=== PATIENT | female | born 1980 | race American Indian/Alaskan Native ===

== ENCOUNTER 2017-03-25 14:10 | Inpatient (IN) | payer OTHER ==
[2017-03-25 14:59] LABS: Basophils % (Auto) 1.2 % (0.0-1.8); Eosinophils % (Auto) 0.4 % (0.0-4.3); Hematocrit 40.7 % (30.3-42.9); Hemoglobin 13.1 gm/dl (10.1-14.3); Mean Corpuscular HGB Conc 32 % (30-34); Mean Corpuscular Hemoglobin 26 pg (28-32); Mean Corpuscular Volume 82 fl (79-97); Platelet Count 215 K/mm3 (140-440); Red Blood Count 4.98 M/mm3 (3.65-5.03); Red Cell Distribution Width 14.4 % (13.2-15.2); White Blood Count 4.3 K/mm3 (4.5-11.0)
[2017-03-25 15:27] LABS: Anion Gap 19 mmol/L; BUN/Creatinine Ratio 45; Blood Urea Nitrogen 18 mg/dL (7-17); Calcium 9.5 mg/dL (8.4-10.2); Carbon Dioxide 24 mmol/L (22-30); Chloride 93.2 mmol/L (98-107); Potassium 4.6 mmol/L (3.6-5.0); Sodium 132 mmol/L (137-145)
[2017-03-25 15:30] LABS: Glucose 509 mg/dL (65-100)
[2017-03-25 15:35] LABS: Mucus,Urine FEW /HPF
[2017-03-25] MEDS ORDERED: NACL 0.9% 1000 ML 1,000 ML IV ONE ×2 (15:39→16:03)
[2017-03-25 15:40] LABS: Bilirubin,Urine NEG (Negative); Blood,Urine MOD (Negative); Ketones,Urine NEG (Negative); Leukocyte Esterase,Urine TR (Negative); Nitrite,Urine NEG (Negative); Protein,Urine <15 mg/dL mg/dL (Negative); Urobilinogen,Urine < 2.0 mg/dL (<2.0)
--- NOTE | 2017-03-25 16:25 | XRay Report ---
Chest 2 views: History: Shortness of breath. Findings: Normal cardiomediastinal silhouette. Trachea is midline. No consolidation, pneumothorax or pleural effusion. Impression: No acute cardiopulmonary findings.
--- NOTE | 2017-03-25 17:26 | Ultrasound Report ---
FINAL REPORT PROCEDURE: US THRYROID SCAN TECHNIQUE: Focused real-time sonography in multiple planes of the below described organs, glands and soft tissues of the neck was performed with image documentation. CPT 34555 HISTORY: large thyroid COMPARISON: No prior studies are available for comparison. FINDINGS: Right lobe of the thyroid gland measures 6.5 x 3.0 x 3.3 cm. Left lobe measures 7.0 x 3.2 x 3.0 cm. Thyroid gland is diffusely heterogeneous without evidence of a dominant nodule being identified. Thyroid gland is likely hyperemic which could be seen with thyroiditis. IMPRESSION: Enlarged heterogeneous thyroid gland is seen, without evidence of a dominant nodule.
[2017-03-25] MEDS ORDERED: INDERAL IV ONE (17:36)
--- NOTE | 2017-03-25 17:53 | Emergency Department Report ---
ED Palpitations HPI - General Chief Complaint: Hyperglycemia Stated Complaint: DIZZINESS/NECK SWELLING Time Seen by Provider: 03/25/17 16:38 Source: patient Mode of arrival: Ambulatory Limitations: No Limitations - History of Present Illness Initial Comments: 36 year old female the past medical history of [id number]-[id number] diabetes and hypertension presents to the hospital with complaints of sudden onset of palpitations, lightheadedness, shortness of breath. Patient also states she had blurred vision and difficulty focusing. Patient was extremely short of breath with exertion and had difficulty ambulating. She denies actual chest pain, nausea, vomiting, or diaphoresis. Patient has a noticeable swelling to the anterior of her neck which she states has been progressively worsening. She admits to intermittent compliance with her diabetes medication because she is trying to stretch out the doses. No complaints of cough, fever, recent travel, calf tenderness, control pill use, history of PE/DVT. - Related Data Home Medications Medication Instructions Recorded Confirmed Last Taken Insulin Aspart [Novolog] 5 unit SQ BID 03/25/17 03/25/17 Unknown metFORMIN [Glucophage] 1,000 mg PO BID 03/25/17 03/25/17 Unknown Allergies Allergy/AdvReac Type Severity Reaction Status Date / Time No Known Allergies Allergy Verified 03/25/17 14:21 ED Review of Systems ROS: Stated complaint: DIZZINESS/NECK SWELLING Other details as noted in HPI Comment: All other systems reviewed and negative Other: Constitutional: No fevers chills Eyes: as per hpi ENT: No ear pain or throat pain Neck: as per hpi Respiratory: Denies cough wheezing Cardiovascular: Denies chest pain GI: Denies abdominal pain, nausea, vomiting, diarrhea : Denies dysuria Musculoskeletal: Denies back pain Skin: Denies rash, lesions, erythema Neurologic: Denies headache, numbness, weakness Psychiatric: Denies suicidal ideation, hallucinations ED Past Medical Hx - Past Medical History Hx Hypertension: Yes Hx Diabetes: Yes - Surgical History Additional Surgical History: - Social History Smoking Status: Never Smoker Substance Use Type: None - Medications Home Medications: Home Medications Medication Instructions Recorded Confirmed Last Taken Type Insulin Aspart [Novolog] 5 unit SQ BID 03/25/17 03/25/17 Unknown History metFORMIN [Glucophage] 1,000 mg PO BID 03/25/17 03/25/17 Unknown History ED Physical Exam - General Limitations: No Limitations - Other Other exam information: General: No limitations, patient is alert in no acute distress Head exam: Atraumatic, normocephalic Eyes exam: Normal appearance, pupils equal reactive to light, extraocular movements intact ENT: Moist mucous membrane, normal oropharynx Neck exam: Normal inspection, full range of motion, positive enlarged thyroid gland without palpable nodules or tenderness. Respiratory exam: Clear to auscultation bilateral, no wheezes, rales, crackles Cardiovascular: Tachycardic regular rhythm Abdomen: Soft, nondistended, and nontender, with normal bowel sounds, no rebound, or guarding Extremity: Full range of motion normal inspection no deformity, no calf tenderness or edema Back: Normal Inspection, full range of motion, no tenderness Neurologic: Alert, oriented x3, cranial nerves intact, no motor or sensory deficit Psychiatric: normal affect, normal mood Skin: Warm, dry, intact ED Course Vital Signs 03/25/17 03/25/17 03/25/17 14:21 15:06 15:30 Temperature 98.1 F Pulse Rate 134 H 119 H Respiratory 20 19 Rate Blood Pressure 142/93 132/80 128/81 O2 Sat by Pulse 98 Oximetry 03/25/17 03/25/17 03/25/17 15:47 16:00 16:41 Temperature Pulse Rate 100 H Respiratory 20 16 Rate Blood Pressure 136/79 141/83 O2 Sat by Pulse 99 100 Oximetry 03/25/17 03/25/17 17:00 17:30 Temperature Pulse Rate 97 H 103 H Respiratory 19 19 Rate Blood Pressure 153/81 162/85 O2 Sat by Pulse 100 100 Oximetry - Reevaluation(s) Reevaluation #1: 03/25/17 17:52 Initially patient she regular insulin and 2 L of normal saline ordered for hyperglycemia. Lab work reveals the patient has hyperthyroidism. Propanolol 1 mg and methimazole 40 mg ordered ED Medical Decision Making - Lab Data Result diagrams: 03/25/17 14:37 03/25/17 14:37 Lab Results 03/25/17 03/25/17 03/25/17 Range/Units 14:26 14:37 14:37 WBC 4.3 L (4.5-11.0) K/mm3 RBC 4.98 (3.65-5.03) M/mm3 Hgb 13.1 (10.1-14.3) gm/dl Hct 40.7 (30.3-42.9) % MCV 82 (79-97) fl MCH 26 L (28-32) pg MCHC 32 (30-34) % RDW 14.4 (13.2-15.2) % Plt Count 215 (140-440) K/mm3 Lymph % (Auto) 36.5 H (13.4-35.0) % [place] % (Auto) 11.2 H (0.0-7.3) % Eos % (Auto) 0.4 (0.0-4.3) % Baso % (Auto) 1.2 (0.0-1.8) % Lymph # 1.6 (1.2-5.4) K/mm3 [place] # 0.5 (0.0-0.8) K/mm3 Eos # 0.0 (0.0-0.4) K/mm3 Baso # 0.1 (0.0-0.1) K/mm3 Seg Neutrophils % 50.7 (40.0-70.0) % Seg Neutrophils # 2.2 (1.8-7.7) K/mm3 D-Dimer (0-234) ng/mlDDU VBG pH (7.320-7.420) Sodium 132 L (137-145) mmol/L Potassium 4.6 (3.6-5.0) mmol/L Chloride 93.2 L (98-107) mmol/L Carbon Dioxide 24 (22-30) mmol/L Anion Gap 19 mmol/L BUN 18 H (7-17) mg/dL Creatinine 0.4 L (0.7-1.2) mg/dL Estimated GFR > 60 ml/min BUN/Creatinine Ratio 45 % Glucose 509 H* (65-100) mg/dL POC Glucose 474 H (70-105) Lactic Acid (0.7-2.0) mmol/L Calcium 9.5 (8.4-10.2) mg/dL TSH (0.270-4.200) mlU/mL Free T4 (0.76-1.46) ng/dL HCG, Qual (Negative) Urine Color (Yellow) Urine Turbidity (Clear) Urine pH (5.0-7.0) Ur Specific [place] (1.003-1.030) Urine Protein (Negative) mg/dL Urine Glucose (UA) (Negative) mg/dL Urine Ketones (Negative) mg/dL Urine Blood (Negative) Urine Nitrite (Negative) Ur Reducing Substances Urine Bilirubin (Negative) Urine Ictotest Urine Urobilinogen (<2.0) mg/dL Ur Leukocyte Esterase (Negative) Urine WBC (Auto) (0.0-6.0) /HPF Urine RBC (Auto) (0.0-6.0) /HPF U Epithel Cells (Auto) (0-13.0) /HPF Urine Mucus /HPF 03/25/17 03/25/17 03/25/17 Range/Units 14:37 14:37 14:47 WBC (4.5-11.0) K/mm3 RBC (3.65-5.03) M/mm3 Hgb (10.1-14.3) gm/dl Hct (30.3-42.9) % MCV (79-97) fl MCH (28-32) pg MCHC (30-34) % RDW (13.2-15.2) % Plt Count (140-440) K/mm3 Lymph % (Auto) (13.4-35.0) % [place] % (Auto) (0.0-7.3) % Eos % (Auto) (0.0-4.3) % Baso % (Auto) (0.0-1.8) % Lymph # (1.2-5.4) K/mm3 [place] # (0.0-0.8) K/mm3 Eos # (0.0-0.4) K/mm3 Baso # (0.0-0.1) K/mm3 Seg Neutrophils % (40.0-70.0) % Seg Neutrophils # (1.8-7.7) K/mm3 D-Dimer (0-234) ng/mlDDU VBG pH 7.320 (7.320-7.420) Sodium (137-145) mmol/L Potassium (3.6-5.0) mmol/L Chloride (98-107) mmol/L Carbon Dioxide (22-30) mmol/L Anion Gap mmol/L BUN (7-17) mg/dL Creatinine (0.7-1.2) mg/dL Estimated GFR ml/min BUN/Creatinine Ratio % Glucose (65-100) mg/dL POC Glucose (70-105) Lactic Acid (0.7-2.0) mmol/L Calcium (8.4-10.2) mg/dL TSH (0.270-4.200) mlU/mL Free T4 (0.76-1.46) ng/dL HCG, Qual Negative (Negative) Urine Color Yellow (Yellow) Urine Turbidity Clear (Clear) Urine pH 5.0 (5.0-7.0) Ur Specific [place] 1.022 (1.003-1.030) Urine Protein <15 mg/dl (Negative) mg/dL Urine Glucose (UA) >=500 (Negative) mg/dL Urine Ketones Neg (Negative) mg/dL Urine Blood Mod (Negative) Urine Nitrite Neg (Negative) Ur Reducing Substances Not Reportable Urine Bilirubin Neg (Negative) Urine Ictotest Not Reportable Urine Urobilinogen < 2.0 (<2.0) mg/dL Ur Leukocyte Esterase Tr (Negative) Urine WBC (Auto) 2.0 (0.0-6.0) /HPF Urine RBC (Auto) 5.0 (0.0-6.0) /HPF U Epithel Cells (Auto) < 1.0 (0-13.0) /HPF Urine Mucus Few /HPF 03/25/17 03/25/17 03/25/17 Range/Units 15:04 15:25 Unknown WBC (4.5-11.0) K/mm3 RBC (3.65-5.03) M/mm3 Hgb (10.1-14.3) gm/dl Hct (30.3-42.9) % MCV (79-97) fl MCH (28-32) pg MCHC (30-34) % RDW (13.2-15.2) % Plt Count (140-440) K/mm3 Lymph % (Auto) (13.4-35.0) % [place] % (Auto) (0.0-7.3) % Eos % (Auto) (0.0-4.3) % Baso % (Auto) (0.0-1.8) % Lymph # (1.2-5.4) K/mm3 [place] # (0.0-0.8) K/mm3 Eos # (0.0-0.4) K/mm3 Baso # (0.0-0.1) K/mm3 Seg Neutrophils % (40.0-70.0) % Seg Neutrophils # (1.8-7.7) K/mm3 D-Dimer < 135.00 (0-234) ng/mlDDU VBG pH (7.320-7.420) Sodium (137-145) mmol/L Potassium (3.6-5.0) mmol/L Chloride (98-107) mmol/L Carbon Dioxide (22-30) mmol/L Anion Gap mmol/L BUN (7-17) mg/dL Creatinine (0.7-1.2) mg/dL Estimated GFR ml/min BUN/Creatinine Ratio % Glucose (65-100) mg/dL POC Glucose (70-105) Lactic Acid 3.10 H* (0.7-2.0) mmol/L Calcium (8.4-10.2) mg/dL TSH < 0.005 L (0.270-4.200) mlU/mL Free T4 > 7.77 H (0.76-1.46) ng/dL HCG, Qual (Negative) Urine Color (Yellow) Urine Turbidity (Clear) Urine pH (5.0-7.0) Ur Specific [place] (1.003-1.030) Urine Protein (Negative) mg/dL Urine Glucose (UA) (Negative) mg/dL Urine Ketones (Negative) mg/dL Urine Blood (Negative) Urine Nitrite (Negative) Ur Reducing Substances Urine Bilirubin (Negative) Urine Ictotest Urine Urobilinogen (<2.0) mg/dL Ur Leukocyte Esterase (Negative) Urine WBC (Auto) (0.0-6.0) /HPF Urine RBC (Auto) (0.0-6.0) /HPF U Epithel Cells (Auto) (0-13.0) /HPF Urine Mucus /HPF - EKG Data -: EKG Interpreted by [place] EKG shows normal: sinus rhythm, axis (qrs 59), QRS complexes (76), ST-T waves ( no stemi/ t inv) Rate: tachycardia (104) - EKG Data When compared to previous EKG there are: previous EKG unavailable - Radiology Data Radiology results: report reviewed (chest x-ray: No acute findings) Thyroid ultrasound: enlarged heterogeneous thyroid gland without evidence of dominant nodule - Medical Decision Making Patient tachycardia and symptoms likely secondary to hyperthyroidism. No signs of DKA. No signs of sepsis. Patient will cry admission to the hospital for further stabilization and treatment - Differential Diagnosis DKA, hyperglycemia, dehydration, hypothyroidism, PE Critical Care Time: No Critical care attestation.: If time is entered above; I have spent that time in minutes in the direct care of this critically ill patient, excluding procedure time. ED Disposition Clinical Impression: Palpitations, Hyperthyroidism, Uncontrolled diabetes mellitus, Hyperglycemia Disposition: OP ADMIT IP TO THIS HOSP Is pt being admited?: Yes Condition: Stable Time of Disposition: 17:55 (DR Weathers/hosp)
--- NOTE | 2017-03-25 18:46 | History and Physical Report ---
History of Present Illness Chief complaint: I feel dizzy and my neck is swollen History of present illness: 36 YO Female with DM, HTN, Severe Malnutrition presents to ED for evaluation. Pt states that she has been experiencing lightheadedness, shortness of breath, and difficulty focusing for the past several months, as well as swelling in her neck with worsening symptoms over the past week. Pt acknowledges sudden onset of palpitations, and shortness of breath today. Pt acknowledges difficulty ambulating as well as 30 lbs weight loss over the past 3 months. Pt denies fever, chills, chest pain, nausea, vomiting, or diaphoresis,, productive cough, fever, recent travel, calf tenderness, prolonged travel/immobility, indivudual/family history of DVT/PE. Pt seen and evaluated in ED and found to have Thyrotoxic Crisis. Pt admitted to ICU and initiated on therapy with beta edgar, and methimazole. Past History Past Medical History: diabetes, hypertension Social history: single. denies: smoking, alcohol abuse, prescription drug abuse Family history: no significant family history, other (reviewed) Medications and Allergies Allergies Allergy/AdvReac Type Severity Reaction Status Date / Time No Known Allergies Allergy Verified 03/25/17 14:21 Home Medications Medication Instructions Recorded Confirmed Last Taken Type Insulin Aspart [Novolog] 5 unit SQ BID 03/25/17 03/25/17 Unknown History metFORMIN [Glucophage] 1,000 mg PO BID 03/25/17 03/25/17 Unknown History Active Meds: Active Medications Methimazole (Tapazole) 40 mg PO ONCE.ED ONE Stop: 03/26/17 17:38 Review of Systems Constitutional: weight loss, sweats, fatigue, weakness Ears, nose, mouth and throat: no ear pain, no ear discharge, no tinnitis, no decreased hearing, no nose pain, no nasal congestion Breasts: no change in shape, no mass Cardiovascular: palpitations, no orthopnea Respiratory: no cough, no cough with sputum, no excessive sputum, no hemoptysis Gastrointestinal: no abdominal pain, no nausea, no vomiting, no diarrhea Genitourinary Female: no pelvic pain, no flank pain, no menorrhagia, no dysuria Rectal: no pain, no incontinence, no bleeding Integumentary: no rash, no pruritis, no redness, no sores Neurological: no transient paralysis, no paralysis, no weakness, no parathesias , no numbness Psychiatric: no anxiety, no memory loss, no change in sleep habits, no sleep disturbances, no insomnia Endocrine: heat intolerance, flushing, weight change, no cold intolerance, no excessive thirst Hematologic/Lymphatic: no easy bruising, no easy bleeding Allergic/Immunologic: no urticaria, no allergic rhinitis, no wheezing Exam - Constitutional Vitals: Temp Pulse Resp BP Pulse Ox 98.1 F 103 H 19 162/85 100 03/25/17 14:21 03/25/17 17:30 03/25/17 17:30 03/25/17 17:30 03/25/17 17:30 General appearance: Present: severe distress, cachectic - EENT Eyes: Present: PERRL ENT: hearing intact, clear oral mucosa, other (neck mass) - Neck Neck: Present: supple, enlarged thyroid - Respiratory Respiratory effort: normal Respiratory: bilateral: CTA - Cardiovascular Heart Sounds: Present: S1 & S2. Absent: rub, click - Extremities Extremities: pulses symmetrical, No edema Peripheral Pulses: within normal limits - Abdominal General gastrointestinal: Present: soft, non-tender, non-distended, normal bowel sounds Female genitourinary: Present: normal - Integumentary Integumentary: Present: clear, dry, clammy, decreased turgor - Musculoskeletal Musculoskeletal: generalized weakness - Psychiatric Psychiatric: appropriate mood/affect, intact judgment & insight - Neurologic Neurologic: CNII-XII intact, moves all extremities Results - Labs CBC & Chem 7: 03/25/17 14:37 03/25/17 14:37 Labs: Abnormal lab results 03/25/17 03/25/17 03/25/17 Range/Units 14:26 14:37 14:37 WBC 4.3 L (4.5-11.0) K/mm3 MCH 26 L (28-32) pg Lymph % (Auto) 36.5 H (13.4-35.0) % [place] % (Auto) 11.2 H (0.0-7.3) % Sodium 132 L (137-145) mmol/L Chloride 93.2 L (98-107) mmol/L BUN 18 H (7-17) mg/dL Creatinine 0.4 L (0.7-1.2) mg/dL Glucose 509 H* (65-100) mg/dL POC Glucose 474 H (70-105) Lactic Acid (0.7-2.0) mmol/L TSH (0.270-4.200) mlU/mL Free T4 (0.76-1.46) ng/dL 03/25/17 03/25/17 Range/Units 15:04 Unknown WBC (4.5-11.0) K/mm3 MCH (28-32) pg Lymph % (Auto) (13.4-35.0) % [place] % (Auto) (0.0-7.3) % Sodium (137-145) mmol/L Chloride (98-107) mmol/L BUN (7-17) mg/dL Creatinine (0.7-1.2) mg/dL Glucose (65-100) mg/dL POC Glucose (70-105) Lactic Acid 3.10 H* (0.7-2.0) mmol/L TSH < 0.005 L (0.270-4.200) mlU/mL Free T4 > 7.77 H (0.76-1.46) ng/dL Assessment and Plan - Patient Problems (1) Thyrotoxic crisis Current Visit: Yes Status: Acute Qualifiers: Thyrotoxicosis type: T Plan to address problem: Admit to ICU, IVF resuscitation, B Edgar therapy, methimazole, monitor uop q shift, monito bp q shift, Ultrasound thyroid, thyroid panel The high probability of a clinically significant, sudden or life threatening deterioration of the [endocrine, cardiac, pulmonary] system(s) required my full and direct attention, intervention and personal management. The aggregate critical care time was [68] minutes. This time is in addition to time spent performing reported procedures but includes the following: [x] Data Review and interpretation [x] Patient assessment and monitoring of vital signs [x] Documentation [x] Medication orders and management (2) Hyponatremia syndrome Current Visit: Yes Status: Acute Plan to address problem: IVF resuscitation, monitor uop q shift, supportive care, repeat bmp (3) Metabolic acidosis Current Visit: Yes Status: Acute Plan to address problem: Metabolic acidosis: IVF resuscitation, Treat thhrotoxicosis, repeat bmp, will consider bicarbonate if no improvement in acidosis. 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
[2017-03-25] MEDS ORDERED: D50W (25GM) Syringe IV PRN (18:57)
[2017-03-25] MEDS ORDERED: PROVENTIL IH PRN (18:57)
[2017-03-25] MEDS: TAPAZOLE PO SCH (22:16)
[2017-03-25] MEDS: INDERAL PO SCH (22:16)
[2017-03-26] MEDS: TAPAZOLE PO SCH ×3 (06:45→23:07)
[2017-03-26 11:11] LABS: Anion Gap 16 mmol/L; BUN/Creatinine Ratio 65; Blood Urea Nitrogen 13 mg/dL (7-17); Calcium 9.2 mg/dL (8.4-10.2); Carbon Dioxide 27 mmol/L (22-30); Chloride 101.3 mmol/L (98-107); Glucose 227 mg/dL (65-100); Potassium 4.1 mmol/L (3.6-5.0); Sodium 140 mmol/L (137-145)
[2017-03-26] MEDS: INDERAL PO SCH ×2 (11:37→23:07)
[2017-03-26] MEDS: NOVOLOG SUB-Q SCH ×6 (12:01→23:08)
[2017-03-26] MEDS ORDERED: TAPAZOLE PO ONE (17:37)
--- NOTE | 2017-03-26 18:36 | Progress Note ---
Assessment and Plan Assessment and plan: 36 yo AAF with DM and HTN who last PCP follow-up long time ago presented to ER for palpitations; also, for the last few months, she had significant unintentional weight loss, diarrhea Thyrotoxic crisis Significant weight loss, diarrhea, palpitations, exophthalmos combined with TSH almost undetectable, FT4 significantly elevated are consistent with hyperthyroidism/Graves' disease US thyroid showing enlarged, slightly hyperemic thyroid gland with no evidence of dominant nodule Started on methimazole Needs outpatient endocrinology follow-up for further management Tachycardia/palpitations Secondary to #1 Started on propranolol [id number] Likely pseudohyponatremia secondary to hyperglycemia (BS 500 on admission) Will likely improve with insulin Uncontrolled diabetes Likely due to noncompliance BS 500 on admission, normal AG A1c checked and extremity elevated, 13.2 Start long acting insulin along with short acting insulin with meals and SSI based on Accu-Cheks to assess insulin requirements Counseling and diet education HTN Started on propranolol for tachycardia Add lisinopril given uncontrolled diabetes Monitor BP and adjust treatment as needed DVT prophylaxis History Interval history: still having palpitations, but feeling better Hospitalist Physical - Constitutional Vitals: Temp Pulse Resp BP Pulse Ox 98.8 F 91 H 16 144/79 100 03/26/17 15:27 03/26/17 15:27 03/26/17 15:27 03/26/17 15:27 03/26/17 15:27 General appearance: Present: mild distress, cachectic - EENT Eyes: Present: PERRL, EOM intact, exopthalmos. Absent: scleral icterus - Neck Neck: Present: supple, normal ROM. Absent: masses or JVD - Respiratory Respiratory effort: normal Respiratory: bilateral: CTA, negative: rhonchi, wheezing - Cardiovascular Rhythm: regular Heart Sounds: Present: S1 & S2. Absent: systolic murmur - Extremities Extremities: no ischemia - Abdominal General gastrointestinal: soft, non-tender, non-distended, normal bowel sounds - Psychiatric Psychiatric: cooperative - Neurologic Neurologic: CNII-XII intact, no focal deficits Results - Labs CBC & Chem 7: 03/25/17 14:37 03/26/17 10:40 Labs: Laboratory Last Values WBC 4.3 K/mm3 (4.5-11.0) L 03/25/17 14:37 RBC 4.98 M/mm3 (3.65-5.03) 11/07/17 14:37 Hgb 13.1 gm/dl (10.1-14.3) 03/25/17 14:37 Hct 40.7 % (30.3-42.9) 03/25/17 14:37 MCV 82 fl (79-97) 03/25/17 14:37 MCH 26 pg (28-32) L 03/25/17 14:37 MCHC 32 % (30-34) 03/25/17 14:37 RDW 14.4 % (13.2-15.2) 03/25/17 14:37 Plt Count 215 K/mm3 (140-440) 03/25/17 14:37 Lymph % (Auto) 36.5 % (13.4-35.0) H 03/25/17 14:37 [place] % (Auto) 11.2 % (0.0-7.3) H 03/25/17 14:37 Eos % (Auto) 0.4 % (0.0-4.3) 03/25/17 14:37 Baso % (Auto) 1.2 % (0.0-1.8) 03/25/17 14:37 Lymph # 1.6 K/mm3 (1.2-5.4) 03/25/17 14:37 [place] # 0.5 K/mm3 (0.0-0.8) 03/25/17 14:37 Eos # 0.0 K/mm3 (0.0-0.4) 03/25/17 14:37 Baso # 0.1 K/mm3 (0.0-0.1) 03/25/17 14:37 Seg Neutrophils % 50.7 % (40.0-70.0) 03/25/17 14:37 Seg Neutrophils # 2.2 K/mm3 (1.8-7.7) 03/25/17 14:37 D-Dimer < 135.00 ng/mlDDU (0-234) 03/25/17 15:25 VBG pH 7.320 (7.320-7.420) 03/25/17 14:37 Sodium 140 mmol/L (137-145) D 03/26/17 10:40 Potassium 4.1 mmol/L (3.6-5.0) 03/26/17 10:40 Chloride 101.3 mmol/L (98-107) 03/26/17 10:40 Carbon Dioxide 27 mmol/L (22-30) 03/26/17 10:40 Anion Gap 16 mmol/L 03/26/17 10:40 BUN 13 mg/dL (7-17) 03/26/17 10:40 Creatinine 0.2 mg/dL (0.7-1.2) L 03/26/17 10:40 Estimated GFR > 60 ml/min 03/26/17 10:40 BUN/Creatinine Ratio 65 % 03/26/17 10:40 Glucose 227 mg/dL (65-100) H 03/26/17 10:40 POC Glucose 307 (70-105) H 03/26/17 16:46 Hemoglobin A1c 13.2 % (4-6) H 03/26/17 10:40 Lactic Acid 3.10 mmol/L (0.7-2.0) H* 03/25/17 Unknown Calcium 9.2 mg/dL (8.4-10.2) 03/26/17 10:40 TSH < 0.005 mlU/mL (0.270-4.200) L 03/25/17 15:04 Free T4 > 7.77 ng/dL (0.76-1.46) H 03/25/17 15:04 HCG, Qual Negative (Negative) 03/25/17 14:37 Urine Color Yellow (Yellow) 03/25/17 14:47 Urine Turbidity Clear (Clear) 03/25/17 14:47 Urine pH 5.0 (5.0-7.0) 03/25/17 14:47 Ur Specific [place] 1.022 (1.003-1.030) 03/25/17 14:47 Urine Protein <15 mg/dl mg/dL (Negative) 03/25/17 14:47 Urine Glucose (UA) >=500 mg/dL (Negative) 03/25/17 14:47 Urine Ketones Neg mg/dL (Negative) 03/25/17 14:47 Urine Blood Mod (Negative) 03/25/17 14:47 Urine Nitrite Neg (Negative) 03/25/17 14:47 Ur Reducing Substances Not Reportable 03/25/17 14:47 Urine Bilirubin Neg (Negative) 03/25/17 14:47 Urine Ictotest Not Reportable 03/25/17 14:47 Urine Urobilinogen < 2.0 mg/dL (<2.0) 03/25/17 14:47 Ur Leukocyte Esterase Tr (Negative) 03/25/17 14:47 Urine WBC (Auto) 2.0 /HPF (0.0-6.0) 03/25/17 14:47 Urine RBC (Auto) 5.0 /HPF (0.0-6.0) 03/25/17 14:47 U Epithel Cells (Auto) < 1.0 /HPF (0-13.0) 03/25/17 14:47 Urine Mucus Few /HPF 03/25/17 14:47 - Imaging and Cardiology Chest x-ray: image reviewed Imaging and Cardiology: Thyroid US
[2017-03-26] MEDS ORDERED: LEVEMIR SUB-Q SCH (22:00)
[2017-03-27] MEDS: TAPAZOLE PO SCH ×3 (06:32→23:48)
[2017-03-27 06:34] LABS: Anion Gap 16 mmol/L; BUN/Creatinine Ratio 65; Blood Urea Nitrogen 13 mg/dL (7-17); Calcium 8.9 mg/dL (8.4-10.2); Carbon Dioxide 24 mmol/L (22-30); Chloride 101.8 mmol/L (98-107); Glucose 174 mg/dL (65-100); Potassium 3.7 mmol/L (3.6-5.0); Sodium 138 mmol/L (137-145)
[2017-03-27] MEDS: NOVOLOG SUB-Q SCH ×8 (09:05→23:47)
[2017-03-27] MEDS: INDERAL PO SCH ×2 (09:05→23:48)
[2017-03-27] MEDS: ZESTRIL PO SCH (09:06)
[2017-03-28] MEDS: LEVEMIR SUB-Q SCH ×2 (00:39→23:50)
[2017-03-28] MEDS: TAPAZOLE PO SCH ×3 (06:12→23:02)
[2017-03-28] MEDS: NOVOLOG SUB-Q SCH ×8 (08:50→23:49)
[2017-03-28] MEDS: ZESTRIL PO SCH (10:39)
[2017-03-28] MEDS: INDERAL PO SCH ×2 (10:40→23:02)
--- NOTE | 2017-03-28 11:49 | Progress Note ---
Assessment and Plan Assessment and plan: 36 yo AAF with DM and HTN who last PCP follow-up long time ago presented to ER for palpitations; also, for the last few months, she had significant unintentional weight loss, diarrhea Thyrotoxic crisis Significant weight loss, diarrhea, palpitations, exophthalmos combined with TSH almost undetectable, FT4 significantly elevated are consistent with hyperthyroidism/Graves' disease US thyroid showing enlarged, slightly hyperemic thyroid gland with no evidence of dominant nodule Started on methimazole Needs outpatient endocrinology follow-up for further management; counseled extensively regarding the importance of further diagnostic and treatment Tachycardia/palpitations Secondary to #1 Started on propranolol Improving Hyponatremia Likely pseudohyponatremia secondary to hyperglycemia (BS 500 on admission) Improved with insulin Uncontrolled diabetes Likely due to noncompliance most likely secondary to financial issues BS 500 on admission, normal AG A1c checked and extremity elevated, 13.2 Started on baldemar acting insulin along with short acting insulin with meals and SSI based on Accu-Cheks to assess insulin requirements Increased doses today Counseled HTN Started on propranolol for tachycardia Added lisinopril given uncontrolled diabetes Monitor BP and adjust treatment as needed DVT prophylaxis Dispo CM involved, trying to find affordable regimens and also outpatient f/u History Interval history: doing well, no complaints, in NSR, no plapitations Hospitalist Physical - Constitutional Vitals: Temp Pulse Resp BP Pulse Ox 98.0 F 92 H 18 129/73 100 03/28/17 10:29 03/28/17 10:40 03/28/17 10:29 03/28/17 10:29 03/28/17 10:29 General appearance: Present: no acute distress, cachectic - EENT Eyes: Present: PERRL, EOM intact, exopthalmos. Absent: scleral icterus - Neck Neck: Present: supple, masses or JVD, other (large goiter) - Respiratory Respiratory effort: normal Respiratory: bilateral: CTA, negative: rhonchi, wheezing - Cardiovascular Rhythm: regular Heart Sounds: Present: S1 & S2. Absent: systolic murmur - Extremities Extremities: no ischemia, No edema - Abdominal General gastrointestinal: soft, non-tender, non-distended, normal bowel sounds Localized gastrointestinal: tender: LLQ - Psychiatric Psychiatric: appropriate mood/affect, cooperative - Neurologic Neurologic: CNII-XII intact, no focal deficits Results - Labs CBC & Chem 7: 03/25/17 14:37 03/27/17 05:26 Labs: Laboratory Last Values WBC 4.3 K/mm3 (4.5-11.0) L 03/25/17 14:37 RBC 4.98 M/mm3 (3.65-5.03) 03/25/17 14:37 Hgb 13.1 gm/dl (10.1-14.3) 03/25/17 14:37 Hct 40.7 % (30.3-42.9) 03/25/17 14:37 MCV 82 fl (79-97) 03/25/17 14:37 MCH 26 pg (28-32) L 03/25/17 14:37 MCHC 32 % (30-34) 03/25/17 14:37 RDW 14.4 % (13.2-15.2) 03/25/17 14:37 Plt Count 215 K/mm3 (140-440) 03/25/17 14:37 Lymph % (Auto) 36.5 % (13.4-35.0) H 03/25/17 14:37 [place] % (Auto) 11.2 % (0.0-7.3) H 03/25/17 14:37 Eos % (Auto) 0.4 % (0.0-4.3) 03/25/17 14:37 Baso % (Auto) 1.2 % (0.0-1.8) 03/25/17 14:37 Lymph # 1.6 K/mm3 (1.2-5.4) 03/25/17 14:37 [place] # 0.5 K/mm3 (0.0-0.8) 03/25/17 14:37 Eos # 0.0 K/mm3 (0.0-0.4) 03/25/17 14:37 Baso # 0.1 K/mm3 (0.0-0.1) 03/25/17 14:37 Seg Neutrophils % 50.7 % (40.0-70.0) 03/25/17 14:37 Seg Neutrophils # 2.2 K/mm3 (1.8-7.7) 03/25/17 14:37 D-Dimer < 135.00 ng/mlDDU (0-234) 03/25/17 15:25 VBG pH 7.320 (7.320-7.420) 03/25/17 14:37 Sodium 138 mmol/L (137-145) 03/27/17 05:26 Potassium 3.7 mmol/L (3.6-5.0) 03/27/17 05:26 Chloride 101.8 mmol/L (98-107) 03/27/17 05:26 Carbon Dioxide 24 mmol/L (22-30) 03/27/17 05:26 Anion Gap 16 mmol/L 03/27/17 05:26 BUN 13 mg/dL (7-17) 03/27/17 05:26 Creatinine 0.2 mg/dL (0.7-1.2) L 03/27/17 05:26 Estimated GFR > 60 ml/min 03/27/17 05:26 BUN/Creatinine Ratio 65 % 03/27/17 05:26 Glucose 174 mg/dL (65-100) H 03/27/17 05:26 POC Glucose 208 (70-105) H 03/28/17 06:00 Hemoglobin A1c 13.2 % (4-6) H 03/26/17 10:40 Lactic Acid 3.10 mmol/L (0.7-2.0) H* 03/25/17 Unknown Calcium 8.9 mg/dL (8.4-10.2) 03/27/17 05:26 TSH < 0.005 mlU/mL (0.270-4.200) L 03/25/17 15:04 Free T4 > 7.77 ng/dL (0.76-1.46) H 03/25/17 15:04 Free T3 Index 16.9 pg/mL (2.3-4.2) H 03/25/17 15:04 HCG, Qual Negative (Negative) 03/25/17 14:37 Urine Color Yellow (Yellow) 03/25/17 14:47 Urine Turbidity Clear (Clear) 03/25/17 14:47 Urine pH 5.0 (5.0-7.0) 03/25/17 14:47 Ur Specific [place] 1.022 (1.003-1.030) 03/25/17 14:47 Urine Protein <15 mg/dl mg/dL (Negative) 03/25/17 14:47 Urine Glucose (UA) >=500 mg/dL (Negative) 03/25/17 14:47 Urine Ketones Neg mg/dL (Negative) 03/25/17 14:47 Urine Blood Mod (Negative) 03/25/17 14:47 Urine Nitrite Neg (Negative) 03/25/17 14:47 Ur Reducing Substances Not Reportable 03/25/17 14:47 Urine Bilirubin Neg (Negative) 03/25/17 14:47 Urine Ictotest Not Reportable 03/25/17 14:47 Urine Urobilinogen < 2.0 mg/dL (<2.0) 03/25/17 14:47 Ur Leukocyte Esterase Tr (Negative) 03/25/17 14:47 Urine WBC (Auto) 2.0 /HPF (0.0-6.0) 03/25/17 14:47 Urine RBC (Auto) 5.0 /HPF (0.0-6.0) 03/25/17 14:47 U Epithel Cells (Auto) < 1.0 /HPF (0-13.0) 03/25/17 14:47 Urine Mucus Few /HPF 03/25/17 14:47
--- NOTE | 2017-03-28 13:11 | Discharge Summary ---
Providers - Providers Date of Admission: 03/25/17 18:58 Date of discharge: 03/28/17 Attending physician: FELY BARRIGA Primary care physician: GENERAL FARMER Hospitalization Reason for admission: palpitations Condition: Stable Pertinent studies: CXR Thyroid US Hospital course: 36 yo AAF with DM and HTN who lost PCP follow-up long time ago, noncompliant due to financial issues, who had significant unintentional weight loss and diarrhea in the last few months, presented to ER for palpitations. Noted to have exophthalmos and large goiter and found to be in thyrotoxic crisis. Started on Methimazole and Propranolol and advised to f/u with an welder gas automatic for further management. Also, found to have uncontrolled DM, with BS 500 on admission and A1C 13.2. Started on long acting insulin and short acting with meals; doses adjusted during hospitalization. custodian manager assisted with affordable regimens and outpatient f/u. Extensively counseled regarding importance of adherence to treatment. Discharge diagnoses: Thyrotoxic crisis Tachycardia/palpitations Hyponatremia - pseudohyponatremia secondary to hyperglymia Uncontrolled diabetes Cachexia HTN Disposition: DC- TO HOME OR SELFCARE Time spent for discharge: 40 min Core Measure Documentation - Palliative Care Palliative Care/ Comfort Measures: Not Applicable - Core Measures Any of the following diagnoses?: none Exam - Constitutional Vitals: Temp Pulse Resp BP Pulse Ox 98.0 F 92 H 18 129/73 100 03/28/17 10:29 03/28/17 10:40 03/28/17 10:29 03/28/17 10:29 03/28/17 10:29 General appearance: Present: no acute distress, cachectic - EENT Eyes: Present: PERRL, EOM intact, exopthalmos. Absent: scleral icterus - Respiratory Respiratory effort: normal Respiratory: bilateral: CTA, negative: rales, wheezing - Cardiovascular Rhythm: regular Heart Sounds: Present: S1 & S2. Absent: systolic murmur - Extremities Extremities: no ischemia - Abdominal General gastrointestinal: Present: soft, non-tender, non-distended, normal bowel sounds - Psychiatric Psychiatric: cooperative - Neurologic Neurologic: CNII-XII intact, no focal deficits Plan Activity: advance as tolerated Diet: low cholesterol, low salt, diabetic Additional Instructions: Follow up with an welder gas automatic TRAE (ref to Florin) Follow up with: PRIMARY CARE, [Primary Care Provider] - 7 Days [facility] [Outside] - 3 Days Forms: Work/School Release Form Prescriptions: Insulin Detemir [Levemir] 20 units SUB-Q QHS 30 Days Insulin Aspart [NovoLOG 100 UNITS/ML VIAL] 7 unit SQ ACHS 30 Days Lisinopril [Zestril TAB] 10 mg PO QDAY #30 tablet Methimazole [Tapazole] 5 mg PO Q8HR #90 tablet Propranolol HCl 20 mg PO BID #60 tab Syringe and Needle,Insulin,1Ml [Insulin Syringe/Needle 1 ML] 1 each 4XD #120 disp.syrin
[2017-03-29] MEDS: TAPAZOLE PO SCH ×2 (06:25→14:56)
[2017-03-29] MEDS: NOVOLOG SUB-Q SCH ×5 (07:30→16:18)
[2017-03-29] MEDS: ZESTRIL PO SCH (10:17)
[2017-03-29] MEDS: INDERAL PO SCH (10:17)
--- NOTE | 2017-03-29 11:42 | Progress Note ---
Hospitalist Physical - Constitutional Vitals: Temp Pulse Resp BP Pulse Ox 97.7 F 76 20 136/79 100 03/29/17 07:53 03/29/17 07:53 03/29/17 07:53 03/29/17 07:53 03/29/17 07:53 General appearance: Present: mild distress, cachectic Results - Labs CBC & Chem 7: 03/25/17 14:37 03/27/17 05:26 Labs: Laboratory Last Values WBC 4.3 K/mm3 (4.5-11.0) L 03/25/17 14:37 RBC 4.98 M/mm3 (3.65-5.03) 03/25/17 14:37 Hgb 13.1 gm/dl (10.1-14.3) 03/25/17 14:37 Hct 40.7 % (30.3-42.9) 03/25/17 14:37 MCV 82 fl (79-97) 03/25/17 14:37 MCH 26 pg (28-32) L 03/25/17 14:37 MCHC 32 % (30-34) 03/25/17 14:37 RDW 14.4 % (13.2-15.2) 03/25/17 14:37 Plt Count 215 K/mm3 (140-440) 03/25/17 14:37 Lymph % (Auto) 36.5 % (13.4-35.0) H 03/25/17 14:37 [place] % (Auto) 11.2 % (0.0-7.3) H 03/25/17 14:37 Eos % (Auto) 0.4 % (0.0-4.3) 03/25/17 14:37 Baso % (Auto) 1.2 % (0.0-1.8) 03/25/17 14:37 Lymph # 1.6 K/mm3 (1.2-5.4) 03/25/17 14:37 [place] # 0.5 K/mm3 (0.0-0.8) 03/25/17 14:37 Eos # 0.0 K/mm3 (0.0-0.4) 03/25/17 14:37 Baso # 0.1 K/mm3 (0.0-0.1) 03/25/17 14:37 Seg Neutrophils % 50.7 % (40.0-70.0) 03/25/17 14:37 Seg Neutrophils # 2.2 K/mm3 (1.8-7.7) 03/25/17 14:37 D-Dimer < 135.00 ng/mlDDU (0-234) 03/25/17 15:25 VBG pH 7.320 (7.320-7.420) 03/25/17 14:37 Sodium 138 mmol/L (137-145) 03/27/17 05:26 Potassium 3.7 mmol/L (3.6-5.0) 03/27/17 05:26 Chloride 101.8 mmol/L (98-107) 03/27/17 05:26 Carbon Dioxide 24 mmol/L (22-30) 03/27/17 05:26 Anion Gap 16 mmol/L 03/27/17 05:26 BUN 13 mg/dL (7-17) 03/27/17 05:26 Creatinine 0.2 mg/dL (0.7-1.2) L 03/27/17 05:26 Estimated GFR > 60 ml/min 03/27/17 05:26 BUN/Creatinine Ratio 65 % 03/27/17 05:26 Glucose 174 mg/dL (65-100) H 03/27/17 05:26 POC Glucose 323 (70-105) H 03/29/17 11:29 Hemoglobin A1c 13.2 % (4-6) H 03/26/17 10:40 Lactic Acid 3.10 mmol/L (0.7-2.0) H* 03/25/17 Unknown Calcium 8.9 mg/dL (8.4-10.2) 03/27/17 05:26 TSH < 0.005 mlU/mL (0.270-4.200) L 03/25/17 15:04 Free T4 > 7.77 ng/dL (0.76-1.46) H 03/25/17 15:04 Free T3 Index 16.9 pg/mL (2.3-4.2) H 03/25/17 15:04 HCG, Qual Negative (Negative) 03/25/17 14:37 Urine Color Yellow (Yellow) 03/25/17 14:47 Urine Turbidity Clear (Clear) 03/25/17 14:47 Urine pH 5.0 (5.0-7.0) 11/07/17 14:47 Ur Specific [place] 1.022 (1.003-1.030) 03/25/17 14:47 Urine Protein <15 mg/dl mg/dL (Negative) 03/25/17 14:47 Urine Glucose (UA) >=500 mg/dL (Negative) 03/25/17 14:47 Urine Ketones Neg mg/dL (Negative) 03/25/17 14:47 Urine Blood Mod (Negative) 03/25/17 14:47 Urine Nitrite Neg (Negative) 03/25/17 14:47 Ur Reducing Substances Not Reportable 03/25/17 14:47 Urine Bilirubin Neg (Negative) 03/25/17 14:47 Urine Ictotest Not Reportable 03/25/17 14:47 Urine Urobilinogen < 2.0 mg/dL (<2.0) 03/25/17 14:47 Ur Leukocyte Esterase Tr (Negative) 03/25/17 14:47 Urine WBC (Auto) 2.0 /HPF (0.0-6.0) 03/25/17 14:47 Urine RBC (Auto) 5.0 /HPF (0.0-6.0) 03/25/17 14:47 U Epithel Cells (Auto) < 1.0 /HPF (0-13.0) 03/25/17 14:47 Urine Mucus Few /HPF 03/25/17 14:47
[2017-03-29] MEDS ORDERED: NOVOLOG SUB-Q SCH (11:44)
[2017-03-29] MEDS ORDERED: LEVEMIR SUB-Q SCH (11:44)
--- NOTE | 2017-03-29 14:34 | Discharge Summary ---
Providers - Providers Date of Admission: 03/25/17 18:58 Date of discharge: 03/29/17 Attending physician: FELY BARRIGA Primary care physician: TECHNOLOGY SALES SPECIALIST Hospitalization Condition: Stable Disposition: DC-01 TO HOME OR SELFCARE Core Measure Documentation - Palliative Care Palliative Care/ Comfort Measures: Not Applicable - Core Measures Any of the following diagnoses?: none Exam - Constitutional Vitals: Temp Pulse Resp BP Pulse Ox 97.7 F 76 20 136/79 100 03/29/17 07:53 03/29/17 07:53 03/29/17 07:53 03/29/17 07:53 03/29/17 07:53 Plan Activity: no restrictions Diet: diabetic Follow up with: [facility] [Outside] - 3 Days PRIMARY CARE, [Primary Care Provider] - 7 Days Prescriptions: Insulin Aspart [NovoLOG 100 UNITS/ML VIAL] 7 unit SQ ACHS 30 Days Insulin Detemir [Levemir] 20 units SUB-Q QHS 30 Days Lisinopril [Zestril TAB] 10 mg PO QDAY #30 tablet Methimazole [Tapazole] 5 mg PO Q8HR #90 tablet Propranolol HCl 20 mg PO BID #60 tab Syringe and Needle,Insulin,1Ml [Insulin Syringe/Needle 1 ML] 1 each 4XD #120 disp.syrin
[2017-03-29 16:40] VITALS: BP 141/78
== END 2017-03-29 18:19 | disposition home or self-care (01) | DRG 644 ==
LOC: ED 14:10 → CC1 18:58 → 3A 03-26 12:48
PROVIDERS: ADMIT Internal Medicine; ATTEND Internal Medicine
DX: E05.91 Thyrotoxicosis, unspecified with thyrotoxic crisis or storm (principal); E87.2 Acidosis; E87.1 Hypo-osmolality and hyponatremia; Z68.1 Body mass index [BMI] 19.9 or less, adult; R64 Cachexia; E11.65 Type 2 diabetes mellitus with hyperglycemia; I10 Essential (primary) hypertension; R00.2 Palpitations; Z91.19 Patient's noncompliance with other medical treatment and regimen
CPT/HCPCS: 36415; 71020; 76536; 80048; 81001; 82140; 82805; 82962; 83036; 84439; 84443; 84481; 84703; 85025; 85379; 86800; 87040; 93005; 93010; 96361; 96374; J1800; J1815; J1818; J7030